=== PATIENT | female | born 1940 | race Caucasian/White ===

== ENCOUNTER 2018-05-23 10:29 | Emergency (ER) | payer MEDICARE, OTHER ==
[~2018-05-23] VITALS: Ht 157.5 cm; Wt 62.4 kg
[~2018-05-23 10:29] MED LIST: AMOX1TAB61 PO; ASPI-630 PO; EZET10TA18 PO; FEXO1TAB31 PO; FLUC150T PO; MOME17SP NS; MULT-245 PO; NABU500T PO; NAPR500T8 PO; OMEG10006 PO; PRAV40TA2 PO; TRAM50TA PO
[2018-05-23 10:46] VITALS: BP 159/73
--- NOTE | 2018-05-23 11:10 | PHYS DOC ---
Past History Past Medical History: Arthritis, CAD, Other Past Surgical History: No Surgical History Alcohol Use: None Drug Use: None Adult General Chief Complaint Chief Complaint: UPPER EXTREMITY INJURY HPI HPI 78-year-old female presents with left wrist pain. She states that the pain started yesterday and is worse today. She cannot think of any particular injury or inciting event. I treated this patient to a skilled for dog bite on the same arm but it is no one at the wrist. She states it is making her thumb index and middle finger stiff. 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 She states that she is still able to play, but it is uncomfortable. She has a history of osteoporosis. She denies any other complaints. No recent falls or trauma. Review of Systems Review of Systems Constitutional: Denies fever or chills [] Eyes: Denies change in visual acuity, redness, or eye pain [] HENT: Denies nasal congestion or sore throat [] Respiratory: Denies cough or shortness of breath [] Cardiovascular: No additional information not addressed in HPI [] GI: Denies abdominal pain, nausea, vomiting, bloody stools or diarrhea [] : Denies dysuria or hematuria [] Musculoskeletal: Left wrist pain[] Integument: Denies rash or skin lesions [] Neurologic: Denies headache, focal weakness or sensory changes [] Endocrine: Denies polyuria or polydipsia [] All other systems were reviewed and found to be within normal limits, except as documented in this note. Allergies Allergies Allergies Coded Allergies Type Severity Reaction Last Updated Verified No Known Drug Allergies 09/15/14 No Physical Exam Physical Exam Constitutional: Well developed, well nourished, no acute distress, non-toxic appearance. [] HENT: Normocephalic, atraumatic, bilateral external ears normal, oropharynx moist, no oral exudates, nose normal. [] Eyes: PERRLA, EOMI, conjunctiva normal, no discharge. [] Neck: Normal range of motion, no tenderness, supple, no stridor. [] Cardiovascular:Heart rate regular rhythm, no murmur [] Lungs & Thorax: Bilateral breath sounds clear to auscultation [] Abdomen: Bowel sounds normal, soft, no tenderness, no masses, no pulsatile masses. [] Skin: Warm, dry, no erythema, no rash. [] Back: No tenderness, no CVA tenderness. [] Extremities: Tenderness over the carpal tunnel the left wrist. Tenderness along the anatomic snuffbox of the left thumb. No obvious swelling or deformity. + phalens on right[] Neurologic: Alert and oriented X 3, normal motor function, normal sensory function, no focal deficits noted. [] Psychologic: Affect normal, judgement normal, mood normal. [] Current Patient Data Vital Signs Vital Signs Date Time Temp Pulse Resp B/P (MAP) Pulse Ox O2 Delivery O2 Flow Rate FiO2 05/23/18 10:46 66 20 97 Room Air EKG EKG [] Radiology/Procedures Radiology/Procedures [] Course & Med Decision Making Course & Med Decision Making Pertinent Labs and Imaging studies reviewed. (See chart for details) Patient's x-ray showed some mid wrist degenerative change. Further examination revealed that the patient had tingling and numbness with Phalen's test. It seems likely that is a combination of degeneration as well as carpal tunnel syndrome. I have advised anti-inflammatory, icing, and a cock-up splint. She is stable for discharge at this time. [] Dragon Disclaimer Dragon Disclaimer This electronic medical record was generated, in whole or in part, using a voice recognition dictation system. Departure Departure: Referrals: OSEAS LE MD (PCP) NELLY CALDERON DO May 23, 2018 11:10
--- NOTE | 2018-05-23 11:37 | RAD ---
Examination: 3 views of the left wrist HISTORY: History of left wrist pain COMPARISON: None available FINDINGS: Moderate joint space loss identified in the carpal bones likely degeneration. Calcifications of the triangular fibrocartilage identified.Moderate degenerative changes carpometacarpal joints. IMPRESSION: 1. Moderate degenerative changes carpometacarpal joints and the carpometacarpal joints. 2. Chondrocalcinosis. Electronically signed by: Radames Davis MD (05/23/2018 11:33 AM) [facility] [place]
== END 2018-05-23 12:38 | disposition home or self-care (01) ==
LOC: ER 10:29
DX: M11.232 Other chondrocalcinosis, left wrist (principal); M25.532 Pain in left wrist; R20.2 Paresthesia of skin; M19.90 Unspecified osteoarthritis, unspecified site; I25.10 Atherosclerotic heart disease of native coronary artery without angina pectoris
CPT/HCPCS: 73110; 99284

== ENCOUNTER 2019-07-04 16:12 | Emergency (ER) | payer MEDICARE, OTHER ==
[~2019-07-04 16:12] MED LIST changes: -EZET10TA18 PO; +EZET10TA20 PO
[2019-07-04 17:05] VITALS: BP 130/60
[2019-07-04] MEDS ORDERED: SULF1TAB24 PO (17:20)
[2019-07-04] MEDS ORDERED: CEPH500T PO (17:20)
[2019-07-04] MEDS ORDERED: SMZ/TMP 800/160MG TABLET. PO ONE (17:30)
[2019-07-04] MEDS ORDERED: CEPHALEXIN 250 MG CAPSULE PO ONE (17:30)
--- NOTE | 2019-07-04 17:36 | PHYS DOC ---
Past History Past Medical History: Arthritis, CAD, Other Past Surgical History: Appendectomy Alcohol Use: None Drug Use: None Adult General Chief Complaint Chief Complaint: WOUND CHECK HPI HPI Patient is a 79-year-old female here for a wound check she bumped her rollins last week at [employer] she's been putting Band-Aids on it but is getting better and there is some drainage brought in by friend for a wound care check. Patient is a history of high cholesterol takes a statin for that no diabetes nonsmoker no allergies Review of Systems Review of Systems Constitutional: Denies fever or chills [] Eyes: Denies change in visual acuity, redness, or eye pain [] HENT: Denies nasal congestion or sore throat [] Respiratory: Denies cough or shortness of breath [] Cardiovascular: No additional information not addressed in HPI [] GI: Denies abdominal pain, nausea, vomiting, bloody stools or diarrhea [] Neurologic: Denies headache, focal weakness or sensory changes [] Endocrine: Denies polyuria or polydipsia [] All other systems were reviewed and found to be within normal limits, except as documented in this note. Current Medications Current Medications Current Medications Medications (Trade) Dose Ordered Sig/Samson Start Time Stop Time Status Last Admin Dose Admin Cephalexin HCl (Keflex) 500 mg 1X ONCE 07/04/19 17:30 07/04/19 17:31 DC Trimethoprim/ Sulfamethoxazole (Bactrim Ds) 1 tab 1X ONCE 07/04/19 17:30 07/04/19 17:31 DC Allergies Allergies Allergies Coded Allergies Type Severity Reaction Last Updated Verified No Known Drug Allergies 09/15/14 No Physical Exam Physical Exam Constitutional: Well developed, well nourished, no acute distress, non-toxic appearance. [] HENT: Normocephalic, atraumatic, bilateral external ears normal, oropharynx moist, no oral exudates, nose normal. [] Eyes: PERRLA, EOMI, conjunctiva normal, no discharge. [] Pulmonary: Normal respiratory effort no increased work of breathing no obvious chest wall trauma Abdomen: Bowel sounds normal, soft, no tenderness, no masses, no pulsatile masses. [] Skin: There is an approximately 4 cm vertically oriented somewhat old appearing laceration with mild surrounding cellulitis and some mild to moderate exudative drainage no abscess noted. Probed to soft tissue bone not visualized after irrigation and gentle probing of the wound with sterile Q-tip] Extremities: No tenderness, no cyanosis, no clubbing, ROM intact, no edema. [] Neurologic: Alert and oriented X 3, normal motor function, normal sensory function, no focal deficits noted. [] Psychologic: Affect normal, judgement normal, mood normal. [] Current Patient Data Vital Signs Vital Signs Date Time Temp Pulse Resp B/P (MAP) Pulse Ox O2 Delivery O2 Flow Rate FiO2 07/04/19 17:05 97.8 78 18 97 Room Air 07/04/19 16:50 130/60 (83) Lab Results Mild Temperature (Fahrenheit): * 97.8 degrees F (97.6-99.5) Patient Temperature * 97.8 degrees F (97.5-99.5) Temperature Source * Oral Blood Pressure Systolic * 130 mm Hg (100-140) Blood Pressure Diastolic * 60 mm Hg (60-100) Blood Pressure Mean * 83 mm Hg Blood Pressure Location * Right Arm Pulse Rate * 78 beats per minute (60-90) Pulse Assessment Method * Monitor Respiratory Rate * 18 breaths per minute (12-24) Oxygen Delivery Method * Room Air Bedside Pulse Oximetry * 97 % Treatment Prior to Arrival * No Complaint of Pain * Yes EKG EKG [] Radiology/Procedures Radiology/Procedures [] Course & Med Decision Making Course & Med Decision Making Pertinent Labs and Imaging studies reviewed. (See chart for details) []79-year-old female presenting with a pretibial wound. It does appear to have wound infection present patient had local wound care irrigation I placed Xeroform and a wrap recommended wound care follow-up this week prescribed Bactri m and Keflex counseled to take probiotic with that. Tetanus is up-to-date questions were answered patient voiced understanding of the instructions Dragon Disclaimer Dragon Disclaimer This electronic medical record was generated, in whole or in part, using a voice recognition dictation system. Departure Departure: Impression: Primary Impression: Wound infection Disposition: 01 HOME, SELF-CARE Condition: STABLE Patient Instructions: Wound Infection, [id number] Additional Instructions: Go to wound care this week for follow-up. Keep her leg elevated as much as possible Scripts Cephalexin (CEPHALEXIN) 500 Mg Tablet 1 TAB PO QID for wound, #40 TAB Prov: CELESTINE CHAN MD 11/10/19 Sulfamethoxazole/Trimethoprim (BACTRIM DS TABLET) 1 Each Tablet 1 TAB PO BID for wound for 10 Days, #20 TAB 0 Refills Prov: CELESTINE CHAN MD 07/04/19 CELESTINE CHAN MD Jul 04, 2019 17:36
== END 2019-07-04 17:37 | disposition home or self-care (01) ==
LOC: ER 16:12
DX: L03.116 Cellulitis of left lower limb (principal); E78.00 Pure hypercholesterolemia, unspecified; M19.90 Unspecified osteoarthritis, unspecified site; I25.10 Atherosclerotic heart disease of native coronary artery without angina pectoris
CPT/HCPCS: 99283

== ENCOUNTER 2020-03-25 19:46 | Emergency (ER) | payer MEDICARE, OTHER ==
[~2020-03-25] VITALS: Ht 170.2 cm; Wt 70.0 kg
[~2020-03-25 19:46] MED LIST changes: +CEPH500T PO; +SULF1TAB24 PO
[2020-03-25 20:10] VITALS: BP 137/66
--- NOTE | 2020-03-25 20:25 | PHYS DOC ---
Past History Past Medical History: CAD Past Surgical History: Hip Replacement Alcohol Use: Rarely Drug Use: None General Adult EDM: Chief Complaint: WOUND CHECK HPI: HPI: ".. I here for a wound check.... My son is ED doctor in [place], so I am here under duress...... he said if my wound check is due.. to come to ED.....' when they redo in physical therapy other day they noticed he had some secretion along the suture line... My son find out and said I had to go to have it checked today right now.... I already got a follow-up appointment on Friday... It is not red and is not draining now... I have been swimming and doing my whirlpools.. it is just taking a long time to heal... What you expect on an 79-year-old lady... and it is tender but it has been tender since he did the surgery... I have getting my physical therapy. ... I do not have a fever at all have any streaking... I do not have any increased pain.... I am just here because my son demanded I go to the emergency room tonight...." Patient is a 79 year old female who presents with above hx and complaints unable to get wound check because clinic is closed this weekened. Patient had hip replacement on right on January 17 at [facility]. Patient states there is no increase in pain but is lead mason tender since surgery. She has not noticed any drainage herself. Does have a follow-up appointment on Friday. No chills. No streaking. No drainage noted at this time. Wound massaged and cleaned with alcohol with no drainage could be detected. Did do an application of Polysporin and a dressing to see if drainage recurred later. Will defer antibiotics at this time. Patient deferred x-ray at this time. Patient states she does not want her son called she would rather leave him out of it. Patient encouraged to return if any concerns. Review of Systems: Review of Systems: Constitutional: Denies fever or chills Eyes: Denies change in visual acuity HENT: Denies nasal congestion or sore throat Respiratory: Denies cough or shortness of breath Cardiovascular: Denies chest pain or edema GI: Denies abdominal pain, nausea, vomiting, bloody stools or diarrhea : Denies dysuria Musculoskeletal: Denies back pain or joint pain Integument: Denies rash Neurologic: Denies headache, focal weakness or sensory changes Endocrine: Denies polyuria or polydipsia Lymphatic: Denies swollen glands Psychiatric: Denies depression or anxiety Heart Score: Risk Factors: Risk Factors: DM, Current or recent (<one month) smoker, HTN, HLP, family history of CAD, obesity. Risk Scores: Score 0 - 3: 2.5% MACE over next 6 weeks - Discharge Home Score 4 - 6: 20.3% MACE over next 6 weeks - Admit for Clinical Observation Score 7 - 10: 72.7% MACE over next 6 weeks - Early Invasive Strategies Family History: Family History: Noncontributory to presentation Current Medications: Current Meds: See nursing for home meds Allergies: Allergies: Allergies Coded Allergies Type Severity Reaction Last Updated Verified No Known Drug Allergies 09/15/14 No Physical Exam: PE: Constitutional: no acute distress, non-toxic appearance. [] HENT: Normocephalic, atraumatic, bilateral external ears normal, oropharynx moist, no oral exudates, nose normal. [] Eyes: PERRLA, EOMI, conjunctiva normal, no discharge. [] Neck: Normal range of motion, no tenderness, supple, no stridor. [] Cardiovascular:Heart rate regular rhythm, no murmur [] Lungs & Thorax: Bilateral breath sounds equal at apexes on auscultation [] Abdomen: Bowel sounds normal, soft, no tenderness, no masses, no pulsatile masses. [] Skin: Warm, dry, no erythema, no rash. [] Back: No tenderness, no CVA tenderness. [] Extremities: No tenderness, no cyanosis, no clubbing, ROM intact, no edema. [] Healed scar right hip. No drainage detected. No adenopathy. No streaking. No excessive redness. Neurologic: Alert and oriented X 3, normal motor function, normal sensory function, no focal deficits noted. [] Psychologic: Affect normal, judgement normal, mood normal. [] Current Patient Data: Vital Signs: Vital Signs Date Time Temp Pulse Resp B/P (MAP) Pulse Ox O2 Delivery O2 Flow Rate FiO2 03/25/20 20:10 98.4 72 16 137/66 (89) 99 Room Air EKG: EKG: [] Radiology/Procedures: Radiology/Procedures: [] Course & Med Decision Making: Course & Med Decision Making Pertinent Labs and Imaging studies reviewed. (See chart for details) Patient to monitor for any drainage from site. Will apply Polysporin 4 times a day. Dressing applied just to see if there is any drainage. Patient call for an earlier appointment with her orthopedic. Return if any concerns. Impression: 1. Hx. of serous drainage from incision line per physical therapy ( Pt. has not noted this finding). 2. Hx. Rt hip replacement Jan 18 2020 [] Dragon Disclaimer: Dragon Disclaimer: This electronic medical record was generated, in whole or in part, using a voice recognition dictation system. Departure Departure: Disposition: 01 HOME/RESIDENCE PRIOR TO ADM Condition: STABLE Referrals: OSEAS LE MD (PCP) Justification of Admission: Justification of Admission: Justification of Admission Dx: N/A Dragon Disclaimer This chart was dictated in whole or in part using Voice Recognition software in a busy, high-work load, and often noisy Emergency Department environment. It may contain unintended and wholly unrecognized errors or omissions. Dragon Disclaimer This chart was dictated in whole or in part using Voice Recognition software in a busy, high-work load, and often noisy Emergency Department environment. It may contain unintended and wholly unrecognized errors or omissions. CAITLYN CARTER MD Mar 25, 2020 20:25
== END 2020-03-25 21:00 | disposition home or self-care (01) ==
LOC: ER 19:46
DX: Z48.01 Encounter for change or removal of surgical wound dressing (principal); I25.10 Atherosclerotic heart disease of native coronary artery without angina pectoris; Z96.641 Presence of right artificial hip joint
CPT/HCPCS: 99281

== ENCOUNTER 2020-06-23 19:40 | Emergency (ER) | payer MEDICARE, OTHER ==
[~2020-06-23] VITALS: Ht 170.2 cm; Wt 70.0 kg
[~2020-06-23 19:40] MED LIST changes: -NABU500T PO; +NABU500T7 PO
--- NOTE | 2020-06-23 19:59 | PHYS DOC ---
Past History Past Medical History: CAD, UTI, Other Past Surgical History: Hip Replacement Alcohol Use: Rarely Drug Use: None General Adult HPI: HPI: " My son said I should get checked out... You see I was sitting in my car.. after worship...and it was about 3PM.. yesterday.. and I started getting a headache.. and felt like fever.. and aches... 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 but my son said I should get checked out today... befoe I go back worship..." Patient is a 80 year old female who presents with above hx and complaints of subjective fever, myalgia, malaise, arthralgia, and cephalgia. Pt. denies any current headache, but sates she still has a little fever. 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 Patient denies any recent travel. Patient denies any specific ill contacts. Patient denies any immuno suppression. Patient recently had right hip replacement and currently using a walker. Patient recently diagnosed with a urinary tract infection 2 days ago and started on Macrobid. . Does not know culture results as yet. Culture results at our [facility] is also not reported. Patient normally follows with Dr. Concha Le as a primary at outpatient. Pt[facility] Patient has past history of coronary artery disease, arthritis, elevated cholesterol, and UTI., Pt. very interactive. 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 Review of Systems: Review of Systems: Constitutional: Subject hx of fever Eyes: Denies change in visual acuity HENT: Denies nasal congestion or sore throat Respiratory: Denies cough or shortness of breath Cardiovascular: Denies chest pain or edema GI: Denies abdominal pain, nausea, vomiting, bloody stools or diarrhea : Denies dysuria Musculoskeletal: Hx myalgia and arthralgia Integument: Denies rash Neurologic: History of headache,. Denies focal weakness or sensory changes Endocrine: Denies polyuria or polydipsia Lymphatic: Denies swollen glands Psychiatric: Denies depression or anxiety Family History: Family History: Noncontributory to presentation Current Medications: Current Meds: See nursing for home meds Allergies: Allergies: Allergies Coded Allergies Type Severity Reaction Last Updated Verified No Known Drug Allergies 09/15/14 No Physical Exam: PE: Constitutional: Well developed, well nourished, no acute distress, non-toxic appearance. [] HENT: Normocephalic, atraumatic, bilateral external ears normal, oropharynx moist, no oral exudates, nose normal. Mild pharyngeal injection. Hearing aids. Eyes: PERRLA, EOMI, conjunctiva normal, no discharge. [] Neck: Normal range of motion, no tenderness, supple, no stridor. [] Cardiovascular:Heart rate regular rhythm, no murmur [] Lungs & Thorax: Bilateral breath sounds equal apex with left basilar crackles on auscultation [. Left lower rib tenderness-history of previous left lower rib fractures. Left clavicle prominence -history of old fracture] Abdomen: Bowel sounds normal, soft, no tenderness, no masses, no pulsatile masses. Old surgery scars. Skin: Warm, dry, no erythema, no rash. Mild turgor loss Back: No tenderness, no CVA tenderness. [] Extremities: No tenderness, no cyanosis, no clubbing, ROM intact, no edema. No cording noted. Right hip suture line well-healed Neurologic: Alert and oriented X 3, normal motor function, normal sensory function, no focal deficits noted. DTRs +2 patella and brachial. Patient is amatory without problems with her walker. ( Recent Rt. hip replacement). No drift. Psychologic: Affect normal, judgement normal, mood normal. [] EKG: EKG: My interpretation EKG shows a sinus rhythm at 88. Left axis with LVH and bundle branch block. But no findings of acute STEMI of contralateral changes. Radiology/Procedures: Radiology/Procedures: [][address] [address] IMAGING REPORT Signed PATIENT: ZIYAD FIGUEROAUNT: [id number] : 1940 LOCATION: ER AGE: 80 SEX: F EXAM STATUS: PRE ER ORD. PHYSICIAN: CAITLYN CARETR MD REASON: fever, cough PROCEDURE: PORTABLE CHEST 1V PORTABLE CHEST 1V Clinical History: Reason: fever, cough / Spl. Instructions: / History: Technique: AP view of the chest was obtained at 06/23/2020 8:02 PM. Comparison: April 11, 2015. Findings: The cardiomediastinal silhouette is normal. The pulmonary vasculature is normal. There is old clavicular fracture on the left. There is linear opacities in the left lung base. Impression: Linear opacities left lung base are seen previously could be discoid atelectasis or scar. Electronically signed by: Ady Grayson III, MD (06/23/2020 8:23 PM) [facility] DICTATED AND SIGNED BY: ADY GRAYSON III, MD DATE: 06/23/202022 CC: CAITLYN CARTER MD; CONCHA LE MD ~ Heart Score: HEART Score for Chest Pain: HEART Score for Chest Pain Response (Comments) Value History Moderately Suspicious 1 ECG Nonspecific Repolarizatio 1 Age > 65 2 Risk Factors 1 or 2 Risk Factors 1 Troponin < Normal Limit 0 Total 5 Risk Factors: Risk Factors: DM, Current or recent (<one month) smoker, HTN, HLP, family history of CAD, obesity. Risk Scores: Score 0 - 3: 2.5% MACE over next 6 weeks - Discharge Home Score 4 - 6: 20.3% MACE over next 6 weeks - Admit for Clinical Observation Score 7 - 10: 72.7% MACE over next 6 weeks - Early Invasive Strategies Course & Med Decision Making: Course & Med Decision Making Pertinent Labs and Imaging studies reviewed. (See chart for details) Discussed labs and treatment plans at length with patient. Did attempt calls to her son Brennon and her [id number] with no answer. Risk and benefits of admission for observation discussed at length with patient. Patient declines admission at this time. Pt. exhibit UCAR capacity. Patient to follow-up urine cultures and Covid testing with her primary. We will expand her antibiotic coverage to Keflex 500 mg 3 times a day, Zithromax 250 a day, and Eliquis 2.5 twice a day because of elevated D-dimer. Suspect this is a viral presentation. Urine white count has not improved on Macrobid. The patient to follow-up Covid results. Patient's blood gas appears to be a mixed sample because her sats were always above 95 to 98%. Normal trop. 0.017 and Normal BNP 165- does not appear to be a cardiac issue at this time. Patient encouraged to self isolate for the next 10 days. Patient encouraged to wear a mask covering her nose and mouth at all times. Impression: 1. Viral syndrome 2. Left lower lobe infiltrate/pneumonia ( No present on prior films) 3. Urinary tract infection 4. Elevated D-dimer 1.51 5. Mild elevation in CRP 14.6 [] Dragon Disclaimer: Dragon Disclaimer: This electronic medical record was generated, in whole or in part, using a voice recognition dictation system. Departure Departure: Disposition: 01 DC HOME SELF CARE/HOMELESS Condition: STABLE Referrals: CONCHA LE MD (PCP) Scripts Apixaban (ELIQUIS) 2.5 Mg Tablet 2.5 MG PO twice a day for Infiltrate/?COVID for 14 Days, TAB Prov: CAITLYN CARTER MD 06/24/20 Azithromycin (ZITHROMAX) 250 Mg Tablet 250 MG PO DAILY for ANTI-BIOTIC for 5 Days, #5 TAB 0 Refills Prov: CAITLYN CARTER MD 06/24/20 Cephalexin (KEFLEX) 500 Mg Capsule 500 MG PO TID for UTI , pneumonia for 7 Days, BOTTLE Prov: CAITLYN CARTER MD 06/24/20 Dragon Disclaimer This chart was dictated in whole or in part using Voice Recognition software in a busy, high-work load, and often noisy Emergency Department environment. It may contain unintended and wholly unrecognized errors or omissions. Dragon Disclaimer This chart was dictated in whole or in part using Voice Recognition software in a busy, high-work load, and often noisy Emergency Department environment. It may contain unintended and wholly unrecognized errors or omissions. CAITLYN CARTER MD Jun 23, 2020 19:59
[2020-06-23] MEDS ORDERED: IV RINGERS SOLUTION,LACTATED 1,000 ML IV SCH (20:02)
--- NOTE | 2020-06-23 20:26 | RAD ---
PORTABLE CHEST 1V Clinical History: Reason: fever, cough / Spl. Instructions: / History: Technique: AP view of the chest was obtained at 06/23/2020 8:02 PM. Comparison: April 11, 2015. Findings: The cardiomediastinal silhouette is normal. The pulmonary vasculature is normal. There is old clavicular fracture on the left. There is linear opacities in the left lung base. Impression: Linear opacities left lung base are seen previously could be discoid atelectasis or scar. Electronically signed by: eBrt Zhong III, MD (06/23/2020 8:23 PM) [facility]
[2020-06-23 20:59] LABS: BARBITURATES NEG (NEG); BENZODIAZEPINES NEG (NEG); BILIRUBIN,URINE NEG (NEG); CANNABINOIDS NEG (NEG); CLARITY,URINE CLEAR; COCAINE NEG (NEG); COLOR,URINE YELLOW; GLUCOSE,URINE NEG (NEG); METHADONE NEG (NEG); OPIATES NEG (NEG); PHENCYCLIDINE NEG (NEG)
[2020-06-23 21:00] LABS: BACTERIA,URINE FEW /HPF (0-FEW); NITRITE,URINE NEG (NEG); RBC,URINE 0 /HPF (0-2); UROBILINOGEN,URINE 0.2 mg/dL (0.2 mg/dL)
[2020-06-23 21:04] LABS: AMPHETAMINE/METHAMPHETAMINE NEG (NEG)
[2020-06-23 21:17] LABS: BASO % 0 % (0-3); EOS % 0 % (0-3); HEMATOCRIT 38.4 % (36.0-47.0); HEMOGLOBIN 12.7 g/dL (12.0-15.5); LYMPH # 0.6 x10^3/uL (1.0-4.8); LYMPH % 7 % (24-48); MEAN CORPUSCULAR HEMOGLOBIN 29 pg (25-35); MEAN CORPUSCULAR HGB CONC 33 g/dL (31-37); MEAN CORPUSCULAR VOLUME 86 fL (79-100); MONO # 0.5 x10^3/uL (0.0-1.1); MONO % 5 % (0-9); NEUT # 8.1 x10^3uL (1.8-7.7); NEUT % 88 % (31-73); PLATELET COUNT 198 x10^3/uL (140-400); RED BLOOD COUNT 4.47 x10^6/uL (3.50-5.40); RED CELL DISTRIBUTION WIDTH 17.2 % (11.5-14.5); WHITE BLOOD COUNT 9.3 x10^3/uL (4.0-11.0)
[2020-06-23 21:19] LABS: CREATININE 0.8 mg/dL (0.6-1.0); GFR 68.7; POTASSIUM 3.6 mmol/L (3.5-5.1)
[2020-06-23] MEDS ORDERED: oxyCODONE/APAP 5/325 1 TAB TABLET PO ONE (21:30)
[2020-06-23 21:32] LABS: ALBUMIN 3.7 g/dL (3.4-5.0); C REACTIVE PROTEIN 14.6 mg/L (0-3.3); DIRECT BILIRUBIN 0.2 mg/dL (0.0-0.2); MAGNESIUM 1.8 mg/dL (1.8-2.4); TOTAL BILIRUBIN 0.7 mg/dL (0.2-1.0); TOTAL PROTEIN 6.8 g/dL (6.4-8.2)
[2020-06-23 21:36] LABS: INFLUENZA A PATIENT NEGATIVE (NEGATIVE); INFLUENZA B PATIENT NEGATIVE (NEGATIVE)
[2020-06-24] MEDS ORDERED: AZITHROMYCIN 250 MG TABLET. PO ONE (00:15)
[2020-06-24] MEDS ORDERED: IV NORMAL SALINE 50ML 50 ML ONE (00:39)
[2020-06-24] MEDS ORDERED: cefTRIAXone SODIUM 1 GM VIAL ONE (00:39)
[2020-06-24] MEDS ORDERED: CEPH-264 PO (00:44)
[2020-06-24] MEDS ORDERED: AZIT250T PO (00:44)
[2020-06-24] MEDS ORDERED: APIX2.5T PO (00:46)
[2020-06-24] MEDS ORDERED: APIXABAN 2.5 MG TABLET PO ONE (01:00)
[2020-06-24 01:03] LABS: BGAS PH 7.47 (7.35-7.45)
[2020-06-24 01:15] VITALS: BP 114/76
--- NOTE | 2020-06-24 02:41 | EKG ---
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
== END 2020-06-24 01:36 | disposition home or self-care (01) ==
LOC: ER 19:40
DX: B34.9 Viral infection, unspecified (principal); N39.0 Urinary tract infection, site not specified; R79.1 Abnormal coagulation profile; R79.82 Elevated C-reactive protein (CRP); I25.10 Atherosclerotic heart disease of native coronary artery without angina pectoris; Z20.828 Contact with and (suspected) exposure to other viral communicable diseases; Z87.442 Personal history of urinary calculi; Z96.641 Presence of right artificial hip joint; Z79.899 Other long term (current) drug therapy
CPT/HCPCS: 36415; 36600; 71045; 80048; 80076; 80307; 81001; 82803; 83605; 83690; 83735; 83880; 84443; 84484; 85025; 85379; 85610; 85730; 86140; 87040; 87086; 87804; 93005; 96361; 96365; 99285; C9803; J0456; J0696; J7120; U0003

== ENCOUNTER 2021-05-08 06:32 | Emergency (ER) | payer MEDICARE, OTHER ==
[~2021-05-08] VITALS: Ht 157.5 cm; Wt 55.0 kg
[~2021-05-08 06:32] MED LIST changes: +APIX2.5T PO; +AZIT250T PO; +CEPH-264 PO; +NABU500T11 PO; -NABU500T7 PO
--- NOTE | 2021-05-08 07:21 | PHYS DOC ---
Past History Past Medical History: CAD, UTI, Other Additional Past Medical Histor: spinal stenosis Past Surgical History: Appendectomy, Hip Replacement, Tonsillectomy Alcohol Use: Rarely Drug Use: None Adult General Chief Complaint Chief Complaint: Neck Pain [facility] Patient is an 81-year-old female presenting for neck pain. Onset was yesterday afternoon without any known inciting event, trauma, known mechanism of injury or other concerning precipitating factor. Nothing known makes better, palpation of paracervical muscles and certain rotational movements make worse. Pain is focal and sometimes radiates to bilateral shoulders depending on neck positioning. Timing of symptoms has been fairly constant, patient states she had trouble staying asleep last night due to ongoing pain. Patient reports trying to lay in hot tub yesterday evening which she states did not help significantly. She also took leftover tramadol previously prescribed for lumbar spinal stenosis at 6 PM and 11 PM respectively yesterday evening with mild relief in symptoms. Denies any vision changes, lightheadedness or dizziness, numbness or tingling past baseline in bilateral upper extremities, or any new/changes in motor or sensory or neuro function of upper extremities. Review of Systems Review of Systems Fourteen body systems of review of systems have been reviewed. See HPI for pertinent positives and negative responses, other rich all other systems are negative, non-pertinent or non-contributory Allergies Allergies Allergies Coded Allergies Type Severity Reaction Last Updated Verified No Known Drug Allergies 09/15/14 No Physical Exam Physical Exam Constitutional: Well developed, well nourished, no acute distress, non-toxic appearance. HENT: Normocephalic, atraumatic, bilateral external ears normal, oropharynx moist, no oral exudates, nose normal. Eyes: PERRLA, EOMI, conjunctiva normal, no discharge. Neck: Range of motion grossly normal but limited at end range of motion during rotation left and right due to pain in addition to and range of motion of flexion due to pain. Otherwise supple, no stridor. No meningeal signs or nuchal rigidity. Midline nontender without step-offs. Patient's bilateral paracervical muscles tight and painful with palpation, alleviated during extension, aggravated with flexion and rotational movements Cardiovascular: Heart rate regular per monitor Lungs & Thorax: No respiratory distress or accessory muscle use, bilateral chest rise Abdomen: Abdomen soft, non-tender, bowel sounds present in all quadrants, no guarding or rebound, nonacute abdomen. Skin: Warm, dry, no erythema, no rash. Back: No tenderness, no CVA tenderness. Extremities: No tenderness, no cyanosis, no clubbing, ROM intact, no edema. Neurologic: Alert and oriented X 3, cranial nerves II through XII intact, normal motor & sensory function, no focal deficits noted. Psychologic: Affect normal, judgement normal, mood normal. Current Patient Data Vital Signs Vital Signs Date Time Temp Pulse Resp B/P (MAP) Pulse Ox O2 Delivery O2 Flow Rate FiO2 05/08/21 07:18 98.5 65 18 127/62 (83) 98 Room Air Vital Signs Date Time Temp Pulse Resp B/P (MAP) Pulse Ox O2 Delivery O2 Flow Rate FiO2 05/08/21 07:18 98.5 65 18 127/62 (83) 98 Room Air EKG EKG [] Radiology/Procedures Radiology/Procedures [] Heart Score C/O Chest Pain: No Risk Factors: Risk Factors: DM, Current or recent (<one month) smoker, HTN, HLP, family history of CAD, obesity. Risk Scores: Risk Factors: DM, Current or recent (<one month) smoker, HTN, HLP, family history of CAD, obesity. Course & Med Decision Making Course & Med Decision Making ABCs unremarkable. I disclosed entirety of ER findings and discussed most likely diagnosis of neck pain, likely self-limiting etiology. Patient admits she spent prior 48 hours gardening and watching [employer] game. I discussed likely etiology is musculoskeletal in nature and would respond to continued supportive care practices. Other diagnoses were discussed with patient such as meningitis, nerve impingement, and other cervical spine related emergencies but all deemed less likely causes of patient's presentation. Supportive care practices advised. I recommended patient keep neck in utilize Tylenol primarily for pain control. Patient has leftover tramadol prescription which I educated her on importance of safe practices and use as she is elderly, high fall risk, and lives home alone. I disclosed my concern for prescribing any narcotics or other medications such as muscle relaxers that might cause patient to be more sleepy and thus a higher fall risk. Plan of care discussed at length with need for close outpatient follow-up to review today's ER visit stressed. Strict return precautions were also discussed at length with good understanding verbalized by patient. Patient voiced understanding and agreement with the plan. Patient knows to come back for repeat evaluation if concerning signs or symptoms present prior to outpatient follow-up. Hemodynamically stable, am bulatory and well-appearing at time of disposition. Dragon Disclaimer Dragon Disclaimer This electronic medical record was generated, in whole or in part, using a voice recognition dictation system. Departure Departure: Impression: Primary Impression: Neck pain Disposition: HOME / SELF CARE / HOMELESS Condition: STABLE Referrals: OSEAS LE MD (PCP) Patient Instructions: Soft Tissue Injury of the Neck Additional Instructions: You were seen for most likely musculoskeletal pain. Your pain is most likely due to a muscle strain and should improve with Tylenol, stretching, heating with pad or hot tub, and activity. You should return to the ED if you develop worsening pain, fever, numbness, tingling, weakness, or any other new or concerning symptoms. As discussed, it is recommended that you contact your primary care physician today to schedule close outpatient follow-up by the end of the week for repeat evaluation. There might be indication for outpatient referral for physical therapy and/or specialist of the spine if symptoms persist. I wish you the best going forward HAYDEE VENEGAS DO May 08, 2021 07:20
[2021-05-08 08:09] VITALS: BP 113/63
== END 2021-05-08 08:12 | disposition home or self-care (01) ==
LOC: ER 06:32
DX: M54.2 Cervicalgia (principal); I25.10 Atherosclerotic heart disease of native coronary artery without angina pectoris; Z87.440 Personal history of urinary (tract) infections
CPT/HCPCS: 99282

== ENCOUNTER 2021-12-23 13:54 | Emergency (ER) | payer MEDICARE, OTHER ==
[~2021-12-23] VITALS: Ht 157.5 cm; Wt 55.0 kg
[~2021-12-23 13:54] MED LIST changes: -MOME17SP NS; +MOME17SP5 NS
--- NOTE | 2021-12-23 14:09 | PHYS DOC ---
Past History Past Medical History: CAD, UTI, Other Additional Past Medical Histor: spinal stenosis Past Surgical History: Hip Replacement Alcohol Use: Occasionally Drug Use: None Adult General Chief Complaint Chief Complaint: CHEST PAIN HPI HPI Patient with complaint of chest pain and left upper back pain initially beginning at 9 this morning. Patient states pain was somewhat of a pressure sensation in the left scapular region initially. Patient states this gradually worsened throughout the morning hours somewhat coming and going. Patient reports pain then seemed to move under the left scapula. Patient states this is worse with deep breathing but denies any pain with movement. Patient denies any diaphoresis, no nausea or vomiting. Patient does states she does feel mildly short of breath. Review of Systems Review of Systems Constitutional: Denies fever or chills [] Eyes: Denies change in visual acuity, redness, or eye pain [] HENT: Denies nasal congestion or sore throat [] Respiratory: Mild shortness of breath Cardiovascular: Left upper chest pain GI: Denies abdominal pain, nausea, vomiting, bloody stools or diarrhea [] : Denies dysuria or hematuria [] Musculoskeletal: Denies back pain or joint pain [] Integument: Denies rash or skin lesions [] Neurologic: Denies headache, focal weakness or sensory changes [] Endocrine: Denies polyuria or polydipsia [] All other systems were reviewed and found to be within normal limits, except as documented in this note. Allergies Allergies Allergies Coded Allergies Type Severity Reaction Last Updated Verified No Known Drug Allergies 05/08/21 No Physical Exam Physical Exam Constitutional: Well developed, well nourished, no acute distress, non-toxic appearance. [] HENT: Normocephalic, atraumatic, bilateral external ears normal, oropharynx moist, no oral exudates, nose normal. [] Eyes: PERRLA, EOMI, conjunctiva normal, no discharge. [] Neck: Normal range of motion, no tenderness, supple, no stridor. [] Cardiovascular:Heart rate regular rhythm, no murmur [] Lungs & Thorax: Bilateral breath sounds clear to auscultation [] Abdomen: Bowel sounds normal, soft, no tenderness, no masses, no pulsatile masses. [] Skin: Warm, dry, no erythema, no rash. [] Back: No tenderness, no CVA tenderness. [] Extremities: No tenderness, no cyanosis, no clubbing, ROM intact, no edema. [] Neurologic: Alert and oriented X 3, normal motor function, normal sensory function, no focal deficits noted. [] Psychologic: Affect normal, judgement normal, mood normal. [] EKG EKG [] Radiology/Procedures Radiology/Procedures [] Heart Score C/O Chest Pain: Yes HEART Score for Chest Pain: HEART Score for Chest Pain Response (Comments) Value History Moderately Suspicious 1 ECG Nonspecific Repolarizatio 1 Age > 65 2 Risk Factors 1 or 2 Risk Factors 1 Troponin < Normal Limit 0 Total 5 Risk Factors: Risk Factors: DM, Current or recent (<one month) smoker, HTN, HLP, family history of CAD, obesity. Risk Scores: Risk Factors: DM, Current or recent (<one month) smoker, HTN, HLP, family history of CAD, obesity. Course & Med Decision Making Course & Med Decision Making Patient with complaint of chest pain intermittent throughout the morning hours. Patient will get labs and full work-up in the emergency department. 1722-patient with EKG with right bundle branch block, no prior to compare to. Patient with chest x-ray with no acute abnormal findings. Initial cardiac enzymes negative. Patient case discussed at length with patient as well as with her son who is an emergency medicine physician in the [facility]. Ultimately patient is adamant that she does not want to stay in the hospital. After extensive discussion with all parties, it was decided to pursue second cardiac enzyme level. No significant increase in overall high-sensitivity troponin in that time. Patient with no further discomfort or pain and is anxious for discharge home. Patient's son and patient are comfortable with the plan of care with further outpatient follow-up with patient's primary carton machine operator Dr. Melvin in the [facility]. Patient is to contact the cardiology clinic tomorrow for further outpatient follow-up and evaluation. Return precautions discussed at length Dragon Disclaimer Dragon Disclaimer This electronic medical record was generated, in whole or in part, using a voice recognition dictation system. Departure Departure: Impression: Primary Impression: Chest pain Disposition: HOME / SELF CARE / HOMELESS Condition: STABLE Referrals: OSEAS LE MD (PCP) Contact your primary care physician as well as your primary cardiology clinic for outpatient follow-up and further outpatient evaluation. Return to the emergency department for any worsening symptoms KARIN GUSTAFSON MD December 23, 2021 14:09
[2021-12-23] MEDS ORDERED: ASPIRIN CHEWABLE 81 MG TABLET. PO ONE (14:15)
[2021-12-23 14:28] LABS: BASO % 0 % (0-3); EOS # 0.1 x10^3/uL (0.0-0.7); EOS % 1 % (0-3); HEMATOCRIT 39.6 % (36.0-47.0); HEMOGLOBIN 13.2 g/dL (12.0-15.5); LYMPH # 2.5 x10^3/uL (1.0-4.8); LYMPH % 37 % (24-48); MEAN CORPUSCULAR HEMOGLOBIN 30 pg (25-35); MEAN CORPUSCULAR HGB CONC 33 g/dL (31-37); MEAN CORPUSCULAR VOLUME 90 fL (79-100); MONO # 0.6 x10^3/uL (0.0-1.1); MONO % 9 % (0-9); NEUT # 3.6 x10^3uL (1.8-7.7); NEUT % 53 % (31-73); PLATELET COUNT 236 x10^3/uL (140-400); RED CELL DISTRIBUTION WIDTH 14.8 % (11.5-14.5); WHITE BLOOD COUNT 6.9 x10^3/uL (4.0-11.0)
[2021-12-23 14:43] LABS: CALCIUM 9.2 mg/dL (8.5-10.1); CREATININE 0.6 mg/dL (0.6-1.0); GFR 95.5; POTASSIUM 4.1 mmol/L (3.5-5.1)
[2021-12-23 14:49] LABS: ALBUMIN 3.8 g/dL (3.4-5.0); ALBUMIN/GLOBULIN RATIO 1.2 (1.0-1.7); TOTAL BILIRUBIN 0.5 mg/dL (0.2-1.0)
--- NOTE | 2021-12-23 14:55 | RAD ---
EXAM: XR CHEST 1V 12/23/2021 2:34 PM CLINICAL INDICATION: Chest pain COMPARISON: Chest radiograph 06/23/2020 TECHNIQUE: AP view of the chest FINDINGS: The heart is normal in size. Lungs are adequately. No consolidation, pleural effusion, or pneumothorax. IMPRESSION: No acute cardiopulmonary abnormality. Electronically signed by: Shelia Graham MD (12/23/2021 2:52 PM) [id number]
[2021-12-23 17:20] VITALS: BP 138/62
--- NOTE | 2021-12-23 21:33 | EKG ---
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
== END 2021-12-23 18:00 | disposition home or self-care (01) ==
LOC: ER 13:54
DX: R07.89 Other chest pain (principal); M54.6 Pain in thoracic spine; R06.02 Shortness of breath; I25.10 Atherosclerotic heart disease of native coronary artery without angina pectoris; Z87.440 Personal history of urinary (tract) infections
CPT/HCPCS: 36415; 71045; 80053; 84484; 85025; 93005; 99285